=== PATIENT | female | born 1985 | race Asian ===

== ENCOUNTER 2017-06-13 11:00 | Emergency (ER) | payer BC ==
[~2017-06-13] VITALS: Ht 152.4 cm; Wt 50.5 kg
[2017-06-13 12:15] LABS: CALCIUM 9.4 mg/dL (8.5-10.1); CHLORIDE SERUM 102 mmol/L (98-107); CREATININE SERUM 0.6 mg/dL (0.6-1.0); GFR1 > 60 mL/min; GLUCOSE SERUM 82 mg/dL (74-106); POTASSIUM SERUM 3.1 mmol/L (3.5-5.1); SODIUM SERUM 137 mmol/L (136-145)
[2017-06-13 12:20] LABS: ALBUMIN 4.4 g/dL (3.4-5.0); ALKALINE PHOSPHATASE 42 U/L (46-116); ALT/SGPT 13 U/L (14-59); AMYLASE 74 U/L (25-115); AST/SGOT 9 U/L (15-37); BILIRUBIN TOTAL 0.9 mg/dL (0.20-1.00); LIPASE 142 IU/L (73-393); TOTAL PROTEIN, SERUM 8.4 g/dL (6.4-8.2)
[2017-06-13 12:27] LABS: UA SPECIFIC GRAVITY <=1.005 (1.005-1.035); microscopic required? YES; urine erythrocyte NEGATIVE (NEGATIVE)
[2017-06-13 12:41] LABS: BASOPHIL % 1.1 % (0-2); RED CELL DISTRIBUTION WIDTH 12.5 % (11.5-14.5)
[2017-06-13 12:49] LABS: PLATELET COUNT 89 x10^3mcL (130-400)
[2017-06-13 14:34] VITALS: BP 121/74
== END 2017-06-13 14:34 | disposition left against medical advice (07) ==
LOC: ED 11:00
PROVIDERS: Emergency Medicine
DX: O26.891 Other specified pregnancy related conditions, first trimester (principal); Z3A.01 Less than 8 weeks gestation of pregnancy
CPT/HCPCS: J7030; Q0092

== ENCOUNTER 2018-08-19 02:18 | Emergency (ER) | payer BC ==
[~2018-08-19] VITALS: Ht 154.9 cm; Wt 54.0 kg
[2018-08-19 02:23] VITALS: Ht 154.9 cm; Wt 54.0 kg
[2018-08-19 03:01] VITALS: BP 112/65
== END 2018-08-19 03:01 | disposition home or self-care (01) ==
LOC: ED 02:18
DX: L03.012 Cellulitis of left finger (principal)